=== PATIENT | male | born 1980 | race Caucasian/White ===

== ENCOUNTER 2018-01-08 17:50 | Emergency (ER) | payer OTHER ==
[~2018-01-08] VITALS: Ht 182.8 cm; Wt 81.6 kg
[~2018-01-08 17:50] MED LIST: ATIVAN0.5 MG PO; CORDROL20 MG PO; CYCLOBENZAPRINE10 MG PO; CYCLOBENZAPRINE5 M3 PO; EPI EZ PEN1 MG/ML IM; HYDROCODONE BIT1 T11 PO; MOTRIN800 MG PO; MUSCLE RELAXER; PERCOCET 325 MG1 TAB PO; PREDNISONE10 MG PO; TORADOL10 MG PO; ULTRAM50 MG PO
[2018-01-08] MEDS ORDERED: CLINDAMYCIN HC300 MG PO ×2 (19:05→19:19)
[2018-01-08] MEDS ORDERED: Motrin,Rufen800 MG PO (19:05)
== END 2018-01-08 19:20 | disposition home or self-care (01) ==
LOC: ED 17:50
DX: S81.831A Puncture wound without foreign body, right lower leg, initial encounter (principal); Z91.030 Bee allergy status; Z88.0 Allergy status to penicillin; Z88.8 Allergy status to other drugs, medicaments and biological substances; W45.8XXA Other foreign body or object entering through skin, initial encounter; Y93.89 Activity, other specified; Y92.89 Other specified places as the place of occurrence of the external cause; Y99.8 Other external cause status

== ENCOUNTER 2018-04-15 18:21 | Emergency (ER) | payer OTHER ==
[~2018-04-15] VITALS: Ht 182.8 cm; Wt 79.4 kg
[~2018-04-15 18:21] MED LIST changes: +CLINDAMYCIN HC300 MG PO; +Motrin,Rufen800 MG PO
[2018-04-15] MEDS ORDERED: Motrin,Rufen800 MG PO (20:00)
[2018-04-15] MEDS ORDERED: NORCO 5-325 TA1 EACH PO (20:00)
== END 2018-04-15 20:07 | disposition home or self-care (01) ==
LOC: ED 18:21
DX: S22.41XA Multiple fractures of ribs, right side, initial encounter for closed fracture (principal); S29.011A Strain of muscle and tendon of front wall of thorax, initial encounter; Z91.030 Bee allergy status; Z88.0 Allergy status to penicillin; Z88.8 Allergy status to other drugs, medicaments and biological substances; X58.XXXA Exposure to other specified factors, initial encounter; Y93.72 Activity, wrestling; Y92.89 Other specified places as the place of occurrence of the external cause; Y99.8 Other external cause status

== ENCOUNTER 2021-05-24 09:24 | Emergency (ER) | payer OTHER ==
[~2021-05-24] VITALS: Ht 182.8 cm; Wt 77.1 kg
[~2021-05-24 09:24] MED LIST changes: +EPIPEN 2-P0.3 MG/0.3 IJ; +FLOMAX0.4 MG PO; +IBUPROFEN400 MG PO; +NORCO 5-325 TA1 EACH PO
[2021-05-24 09:51] LABS: BASO # 0.1 10*3/uL (0.0-0.1); BASO % 0.5 % (0.0-1.0); EOS # 0.3 10*3/uL (0.0-0.4); EOS % 2.1 % (1.0-4.0); HEMATOCRIT 43.5 % (42.0-52.0); LYMPH # 4.5 10*3/uL (1.3-4.4); LYMPH % 30.2 % (27.0-41.0); MEAN CELL VOLUME 90.2 fl (80.0-94.0); MEAN CORPUSCULAR HGB 29.7 pg (27.0-31.0); MEAN CORPUSCULAR HGB CONC 32.9 g/dl (33.0-37.0); MEAN PLATELET VOLUME 9.2 fl (9.6-12.3); MONO # 0.8 10*3/uL (0.1-1.0); MONO % 5.6 % (3.0-9.0); NEUT # 9.1 10*3/uL (2.3-7.9); NEUT % 61.1 % (47.0-73.0); PLATELET COUNT AUTOMATED 387 10*3/uL (130-400); RED BLOOD COUNT 4.82 10*6/uL (4.50-5.90); RED CELL DISTRI WIDTH 12.7 % (0-14.5); WHITE BLOOD COUNT 14.9 10*3/uL (4.8-10.8)
[2021-05-24 10:09] LABS: ALBUMIN 3.8 gm/dl (3.1-4.5); ALKALINE PHOSPHATASE 67 U/L (45-117); BUN 17 mg/dl (7-24); CHLORIDE 110 mmol/L (98-107); CREATININE 1.33 mg/dL (0.70-1.30); LIPASE 88 U/L (73-393); POTASSIUM 3.3 mmol/L (3.5-5.1); SGOT/AST 26 IU/L (3-35); SGPT/ALT 32 U/L (12-78); SODIUM 142 mmol/L (136-145); TOTAL PROTEIN 7.5 gm/dL (6.4-8.2)
== END 2021-05-24 13:24 | disposition short-term general hospital (02) ==
LOC: ED 09:24
PROVIDERS: Family Medicine
DX: N13.2 Hydronephrosis with renal and ureteral calculous obstruction (principal); Z91.030 Bee allergy status; Z88.0 Allergy status to penicillin; Z88.8 Allergy status to other drugs, medicaments and biological substances

== ENCOUNTER 2021-11-21 11:32 | Emergency (ER) | payer OTHER ==
[~2021-11-21] VITALS: Wt 79.4 kg
[2021-11-21 11:59] LABS: BASO # 0.1 10*3/uL (0.0-0.1); BASO % 0.7 % (0.0-1.0); EOS # 0.3 10*3/uL (0.0-0.4); EOS % 3.2 % (1.0-4.0); HEMATOCRIT 47.3 % (42.0-52.0); LYMPH # 2.4 10*3/uL (1.3-4.4); MEAN CELL VOLUME 88.2 fl (80.0-94.0); MEAN CORPUSCULAR HGB 29.7 pg (27.0-31.0); MEAN CORPUSCULAR HGB CONC 33.6 g/dl (33.0-37.0); MEAN PLATELET VOLUME 9.2 fl (9.6-12.3); MONO # 0.5 10*3/uL (0.1-1.0); MONO % 5.3 % (3.0-9.0); NEUT # 6.7 10*3/uL (2.3-7.9); NEUT % 66.4 % (47.0-73.0); PLATELET COUNT AUTOMATED 341 10*3/uL (130-400); RED BLOOD COUNT 5.36 10*6/uL (4.50-5.90); RED CELL DISTRI WIDTH 13.3 % (0-14.5)
[2021-11-21 12:16] LABS: ALKALINE PHOSPHATASE 76 U/L (45-117); BUN 18 mg/dl (7-24); CHLORIDE 111 mmol/L (98-107); CREATININE 1.14 mg/dL (0.70-1.30); LIPASE 600 U/L (73-393); POTASSIUM 3.9 mmol/L (3.5-5.1); SGOT/AST 18 IU/L (3-35); SGPT/ALT 29 U/L (12-78); SODIUM 140 mmol/L (136-145); TOTAL PROTEIN 7.8 gm/dL (6.4-8.2)
[2021-11-21 16:29] LABS: BILIRUBIN Negative (Negative); BLOOD 3+ (Negative); CLARITY Turbid (Clear); COLOR Yellow (Yellow); GLUCOSE Negative (Negative); KETONE 1+ (Negative); LEUKO ESTERASE Trace (Negative); NITRITE Negative (Negative); PH 5.5 (4.5-8.0); SPECIFIC GRAVITY 1.025 (1.001-1.030)
[2021-11-21 16:50] LABS: URINE AMPHETAMINES < 1000 (1000ng/ml); URINE BARBITURATES < 200 (200ng/ml); URINE BENZODIAZEPINES < 200 (200ng/ml); URINE CANNABINOIDS (THC) > 50 (50ng/ml); URINE COCAINE > 300 (300ng/ml); URINE METHADONE < 300 (300ng/ml); URINE OPIATES < 300 (300ng/ml)
[2021-11-21 16:59] LABS: URINE PHENCYCLIDINE < 25 (25ng/ml)
[2021-11-21 17:01] LABS: BACTERIA 2+; CALCIUM OXALATE CRYSTALS 3+; EPITHELIAL CELLS 0-2; MUCOUS 3+; RBC 51-100 rbc/hpf (0-2)
[2021-11-21] MEDS ORDERED: TYLENOL325 M1 PO (17:09)
[2021-11-21] MEDS ORDERED: NAPROXEN250 MG PO (17:09)
[2021-11-21] MEDS ORDERED: FLOMAX0.4 MG PO (17:09)
[2021-11-21] MEDS ORDERED: REGLAN10 M1 PO (17:09)
== END 2021-11-21 17:54 | disposition home or self-care (01) ==
LOC: ED 11:32
PROVIDERS: Emergency Medicine
DX: N23 Unspecified renal colic (principal); Z91.030 Bee allergy status; Z88.0 Allergy status to penicillin; Z88.8 Allergy status to other drugs, medicaments and biological substances; F17.200 Nicotine dependence, unspecified, uncomplicated

== ENCOUNTER 2021-12-02 06:26 | Emergency (ER) | payer OTHER ==
[~2021-12-02] VITALS: Ht 182.8 cm; Wt 81.6 kg
[~2021-12-02 06:26] MED LIST changes: +NAPROXEN250 MG PO; +REGLAN10 M1 PO; +TYLENOL325 M1 PO
== END 2021-12-02 08:30 | disposition home or self-care (01) ==
LOC: ED 06:26
DX: U07.1 COVID-19 (principal); Z91.030 Bee allergy status; Z88.0 Allergy status to penicillin; Z88.8 Allergy status to other drugs, medicaments and biological substances; F17.200 Nicotine dependence, unspecified, uncomplicated

== ENCOUNTER 2022-10-16 05:26 | Emergency (ER) | payer OTHER ==
[2022-10-16 06:07] LABS: BASO # 0.1 10*3/uL (0.0-0.1); BASO % 0.4 % (0.0-1.0); EOS # 0.1 10*3/uL (0.0-0.4); EOS % 0.6 % (1.0-4.0); HEMATOCRIT 43.3 % (42.0-52.0); LYMPH # 2.2 10*3/uL (1.3-4.4); LYMPH % 16.6 % (27.0-41.0); MEAN CELL VOLUME 88.9 fl (80.0-94.0); MEAN CORPUSCULAR HGB CONC 33.7 g/dl (33.0-37.0); MEAN PLATELET VOLUME 9.2 fl (9.6-12.3); MONO # 0.7 10*3/uL (0.1-1.0); MONO % 5.5 % (3.0-9.0); NEUT # 10.1 10*3/uL (2.3-7.9); NEUT % 76.5 % (47.0-73.0); PLATELET COUNT AUTOMATED 377 10*3/uL (130-400); RED BLOOD COUNT 4.87 10*6/uL (4.50-5.90); RED CELL DISTRI WIDTH 13.2 % (0-14.5); WHITE BLOOD COUNT 13.2 10*3/uL (4.8-10.8)
[2022-10-16 06:20] LABS: ALKALINE PHOSPHATASE 66 U/L (46-116); BUN 15 mg/dl (9-23); CHLORIDE 108 mmol/L (98-107); POTASSIUM 3.4 mmol/L (3.4-5.1); SGPT/ALT 18 U/L (10-49); TOTAL PROTEIN 7.6 gm/dL (6.0-8.0)
[2022-10-16 06:21] LABS: ETHYL ALCOHOL < 3.0 mg/dl (<3)
== END 2022-10-16 10:03 | disposition home or self-care (01) ==
LOC: ED 05:26
PROVIDERS: Internal Medicine
DX: F43.21 Adjustment disorder with depressed mood (principal)

== ENCOUNTER → 2022-10-18 | Outpatient (CLI) | payer OTHER ==
[2022-10-18 14:20] LABS: BASO # 0.1 10*3/uL (0.0-0.1); BASO % 0.6 % (0.0-1.0); EOS # 0.3 10*3/uL (0.0-0.4); HEMATOCRIT 46.6 % (42.0-52.0); LYMPH % 22.9 % (27.0-41.0); MEAN CELL VOLUME 89.6 fl (80.0-94.0); MEAN CORPUSCULAR HGB 29.4 pg (27.0-31.0); MEAN CORPUSCULAR HGB CONC 32.8 g/dl (33.0-37.0); MEAN PLATELET VOLUME 9.2 fl (9.6-12.3); MONO # 0.4 10*3/uL (0.1-1.0); MONO % 4.6 % (3.0-9.0); NEUT # 5.9 10*3/uL (2.3-7.9); NEUT % 68.5 % (47.0-73.0); PLATELET COUNT AUTOMATED 371 10*3/uL (130-400); RED CELL DISTRI WIDTH 13.2 % (0-14.5); RETICULOCYTE % 1.06 % (0.50-2.50); WHITE BLOOD COUNT 8.6 10*3/uL (4.8-10.8)
[2022-10-18 14:27] LABS: BILIRUBIN Negative (Negative); BLOOD Negative (Negative); CLARITY Clear (Clear); COLOR Yellow (Yellow); GLUCOSE Negative (Negative); KETONE Negative (Negative); LEUKO ESTERASE Negative (Negative); NITRITE Negative (Negative); PH 5.5 (4.5-8.0); SPECIFIC GRAVITY >= 1.030 (1.001-1.030)
[2022-10-18 14:56] LABS: ALKALINE PHOSPHATASE 65 U/L (46-116); BUN 12 mg/dl (9-23); CHLORIDE 106 mmol/L (98-107); CHOLESTEROL 171 mg/dL (<200); GAMMA GLUTAMYL TRANSPEPTIDASE 19 U/L (0-73); LDL CHOLESTEROL 108 mg/dL (9-159); POTASSIUM 3.9 mmol/L (3.4-5.1); SGPT/ALT 19 U/L (10-49); T3 UPTAKE 29.1 % (22.4-36.7); THYROID STIM HORMONE (HS) 0.451 uIU/ml (0.550-4.780); THYROXINE (T4) TOTAL 5.8 ug/dl (4.5-10.9); TOTAL PROTEIN 7.4 gm/dL (6.0-8.0); TRIGLYCERIDES 52 mg/dl (<150); URIC ACID 5.1 mg/dL (3.7-9.2)
[2022-10-18 15:08] LABS: VITAMIN D, 25-HYDROXY 18.6 ng/mL (30-100)
[2022-10-18 15:34] LABS: RBC 0-2 rbc/hpf (0-2); WBC 0-2 wbc/hpf (0-5)
[2022-10-19 14:08] LABS: ANTI-DSDNA ANTIBODIES <1 IU/mL (0-9)
== END | disposition home or self-care (01) ==
LOC: LAB 13:49
PROVIDERS: ATTEND Family Medicine
DX: E78.5 Hyperlipidemia, unspecified (principal); R79.89 Other specified abnormal findings of blood chemistry; R53.83 Other fatigue; E55.9 Vitamin D deficiency, unspecified; R06.02 Shortness of breath

== ENCOUNTER 2022-10-25 00:51 | Emergency (ER) | payer OTHER ==
[~2022-10-25] VITALS: Ht 182.8 cm; Wt 71.7 kg
[2022-10-25 01:05] LABS: BASO # 0.1 10*3/uL (0.0-0.1); BASO % 0.4 % (0.0-1.0); EOS # 0.1 10*3/uL (0.0-0.4); EOS % 0.7 % (1.0-4.0); HEMATOCRIT 42.8 % (42.0-52.0); LYMPH # 2.3 10*3/uL (1.3-4.4); LYMPH % 17.2 % (27.0-41.0); MEAN CELL VOLUME 89.5 fl (80.0-94.0); MEAN CORPUSCULAR HGB 29.3 pg (27.0-31.0); MEAN CORPUSCULAR HGB CONC 32.7 g/dl (33.0-37.0); MEAN PLATELET VOLUME 9.4 fl (9.6-12.3); MONO # 0.7 10*3/uL (0.1-1.0); MONO % 5.1 % (3.0-9.0); NEUT # 10.4 10*3/uL (2.3-7.9); NEUT % 76.4 % (47.0-73.0); PLATELET COUNT AUTOMATED 311 10*3/uL (130-400); RED BLOOD COUNT 4.78 10*6/uL (4.50-5.90); RED CELL DISTRI WIDTH 13.1 % (0-14.5); WHITE BLOOD COUNT 13.6 10*3/uL (4.8-10.8)
[2022-10-25 01:26] LABS: ALKALINE PHOSPHATASE 69 U/L (46-116); BUN 11 mg/dl (9-23); CHLORIDE 108 mmol/L (98-107); POTASSIUM 3.2 mmol/L (3.4-5.1); SGPT/ALT 18 U/L (10-49); TOTAL PROTEIN 7.8 gm/dL (6.0-8.0)
[2022-10-25 01:29] LABS: ETHYL ALCOHOL < 3.0 mg/dl (<3)
[2022-10-25 04:48] LABS: BILIRUBIN Negative (Negative); BLOOD Trace-Lysed (Negative); CLARITY Cloudy (Clear); COLOR Yellow (Yellow); GLUCOSE Negative (Negative); KETONE 2+ (Negative); LEUKO ESTERASE Negative (Negative); NITRITE Negative (Negative); PH 7.5 (4.5-8.0); SPECIFIC GRAVITY 1.015 (1.001-1.030)
[2022-10-25 04:56] LABS: URINE AMPHETAMINES Negative (1000ng/ml); URINE BARBITURATES Negative (200ng/ml); URINE BENZODIAZEPINES Negative (200ng/ml); URINE CANNABINOIDS (THC) Positive (50ng/ml); URINE COCAINE Positive (300ng/ml); URINE METHADONE Negative (300ng/ml); URINE OPIATES Negative (300ng/ml); URINE PHENCYCLIDINE Negative (25ng/ml)
[2022-10-25 05:00] LABS: WBC 0-2 wbc/hpf (0-5)
== END 2022-10-25 14:57 | disposition home or self-care (01) ==
LOC: ED 00:51
PROVIDERS: Internal Medicine
DX: F19.10 Other psychoactive substance abuse, uncomplicated (principal); Z91.030 Bee allergy status; Z88.0 Allergy status to penicillin; Z88.8 Allergy status to other drugs, medicaments and biological substances; Z79.899 Other long term (current) drug therapy

== ENCOUNTER → 2022-11-10 | Outpatient (CLI) | payer OTHER | END | disposition home or self-care (01) | LOC: US 17:00 | PROVIDERS: ATTEND Family Medicine | DX: R13.10 Dysphagia, unspecified (principal); R49.0 Dysphonia ==

== ENCOUNTER 2023-04-28 14:26 | Emergency (ER) | payer SELFPAY ==
[~2023-04-28] VITALS: Ht 182.8 cm; Wt 70.3 kg
[2023-04-28] MEDS ORDERED: PREDNISONE20 M1 PO (16:48)
[2023-04-28] MEDS ORDERED: ZITHROMAX250 MG PO (16:48)
== END 2023-04-28 16:57 | disposition home or self-care (01) ==
LOC: ED 14:26
DX: J40 Bronchitis, not specified as acute or chronic (principal); Z91.030 Bee allergy status; Z88.0 Allergy status to penicillin; Z88.8 Allergy status to other drugs, medicaments and biological substances; Z87.442 Personal history of urinary calculi; Z20.822 Contact with and (suspected) exposure to COVID-19

== ENCOUNTER 2025-06-12 06:34 | Emergency (ER) | payer OTHER ==
[~2025-06-12] VITALS: Ht 182.8 cm; Wt 71.2 kg
[~2025-06-12 06:34] MED LIST changes: +PREDNISONE20 M1 PO; +ZITHROMAX250 MG PO
[2025-06-12] MEDS ORDERED: HYDROCODONE-AC1 EAC1 PO (08:07)
[2025-06-12] MEDS ORDERED: CLINDAMYCIN HC300 MG PO (08:07)
[2025-06-12] MEDS ORDERED: Acetaminophen/Hydrocodone 5 MG/325 MG TABLET PO ONE (08:10)
== END 2025-06-12 08:41 | disposition home or self-care (01) ==
LOC: ED 06:34
DX: K02.9 Dental caries, unspecified (principal); R51.9 Headache, unspecified; Z88.0 Allergy status to penicillin; Z91.030 Bee allergy status; Z88.8 Allergy status to other drugs, medicaments and biological substances